=== PATIENT | male | born 1955 | race Asian ===

== ENCOUNTER 2016-10-07 13:50 | Emergency (ER) | payer OTHER ==
[~2016-10-07] VITALS: Ht 172.7 cm; Wt 80.7 kg
[2016-10-07 15:42] LABS: BASOPHIL % 0.4 % (0-2); PLATELET COUNT 208 x10^3mcL (130-400)
[2016-10-07 15:49] LABS: microscopic required? YES; urine erythrocyte 3+ (NEGATIVE)
[2016-10-07 15:57] LABS: RED CELL DISTRIBUTION WIDTH 14.7 % (11.5-14.5)
[2016-10-07 17:00] LABS: CALCIUM 9.1 mg/dL (8.5-10.1); CARBON DIOXIDE 27.5 mmol/L (21-32); CHLORIDE SERUM 110 mmol/L (98-107); CREATININE SERUM 0.9 mg/dL (0.7-1.3); GFR1 > 60 mL/min; GLUCOSE SERUM 97 mg/dL (74-106); POTASSIUM SERUM 3.9 mmol/L (3.5-5.1); SODIUM SERUM 146 mmol/L (136-145)
[2016-10-07 17:04] LABS: ALKALINE PHOSPHATASE 62 U/L (46-116); ALT/SGPT 34 U/L (16-63); AST/SGOT 25 U/L (15-37); BILIRUBIN TOTAL 0.6 mg/dL (0.20-1.00); TOTAL PROTEIN, SERUM 7.2 g/dL (6.4-8.2)
[2016-10-07 18:20] VITALS: BP 120/64
== END 2016-10-07 18:30 | disposition home or self-care (01) ==
LOC: ED 13:50
PROVIDERS: Emergency Medicine
DX: R31.9 Hematuria, unspecified (principal); I10 Essential (primary) hypertension; I48.2 Chronic atrial fibrillation; F17.210 Nicotine dependence, cigarettes, uncomplicated; G89.29 Other chronic pain; Z71.6 Tobacco abuse counseling
CPT/HCPCS: 99406

== ENCOUNTER 2018-03-27 13:18 | Emergency (ER) | payer OTHER ==
[2018-03-27 13:33] VITALS: Ht 170.2 cm
[2018-03-27 14:23] LABS: BASOPHIL % 0.2 % (0-2); PLATELET COUNT 230 x10^3mcL (130-400)
[2018-03-27 14:24] LABS: RED CELL DISTRIBUTION WIDTH 15.1 % (11.5-14.5)
[2018-03-27 14:26] LABS: CALCIUM 9.2 mg/dL (8.5-10.1); CARBON DIOXIDE 29.1 mmol/L (21-32); CHLORIDE SERUM 107 mmol/L (98-107); CREATININE SERUM 0.8 mg/dL (0.7-1.3); GFR1 > 60 mL/min; GLUCOSE SERUM 90 mg/dL (74-106); POTASSIUM SERUM 3.6 mmol/L (3.5-5.1); SODIUM SERUM 141 mmol/L (136-145)
[2018-03-27 14:31] LABS: ALBUMIN 3.8 g/dL (3.4-5.0); ALKALINE PHOSPHATASE 77 U/L (46-116); ALT/SGPT 37 U/L (16-63); AST/SGOT 17 U/L (15-37); BILIRUBIN TOTAL 0.4 mg/dL (0.20-1.00); LIPASE 137 IU/L (73-393); TOTAL PROTEIN, SERUM 7.6 g/dL (6.4-8.2)
[2018-03-27 14:49] VITALS: BP 139/85
== END 2018-03-27 14:49 | disposition home or self-care (01) ==
LOC: ED 13:18
PROVIDERS: Emergency Medicine
DX: R19.7 Diarrhea, unspecified (principal); R42 Dizziness and giddiness; R10.9 Unspecified abdominal pain; I10 Essential (primary) hypertension; E78.00 Pure hypercholesterolemia, unspecified; I48.91 Unspecified atrial fibrillation; F17.210 Nicotine dependence, cigarettes, uncomplicated; Z71.6 Tobacco abuse counseling
CPT/HCPCS: 99406; J7030